=== PATIENT | male | born 1970 | race Caucasian/White ===

== ENCOUNTER 2017-05-01 10:57 | Emergency (ER) | payer MEDICAID ==
[~2017-05-01] VITALS: Ht 167.6 cm; Wt 70.0 kg
[2017-05-01] MEDS ORDERED: ACETAMINOPHEN 325MG TABLET PO ONE (11:30)
[2017-05-01 13:30] VITALS: BP 114/81
== END 2017-05-01 13:50 | disposition home or self-care (01) ==
LOC: ER 11:53
DX: S09.8XXA Other specified injuries of head, initial encounter (principal); H10.9 Unspecified conjunctivitis; M54.2 Cervicalgia; Y08.89XA Assault by other specified means, initial encounter; Y93.89 Activity, other specified; Y92.89 Other specified places as the place of occurrence of the external cause; Y99.8 Other external cause status
CPT/HCPCS: 70450; 70486; 99284; Z7610